=== PATIENT | male | born 1975 ===

== ENCOUNTER 2020-04-28 09:30 | Emergency (ER) | payer SELFPAY ==
[2020-04-28 09:38] VITALS: BP 116/70; PULSE 70; RESP 14; TEMP 36.8; O2SAT 100
--- NOTE | 2020-04-28 09:45 | ED.GENADULT ---
HPI - General Adult General Chief complaint: Skin/Abscess/Foreign Body Stated complaint: left leg infection Time Seen by Provider: 04/28/20 09:47 Source: patient and RN notes reviewed Mode of arrival: ambulatory Limitations: no limitations History of Present Illness HPI narrative: 44-year-old male presents with complaints of redness, warmth, tenderness, and swelling to left lateral lower leg for the past 3 days. Several days ago left lateral lower leg with nodule and then redness and warmth. Panfilo is unaware of any injuries to leg, may have scratched area. Alcohol and OTC cream applied without relief. Denies radiation of tenderness, redness, or swelling. No exacerbating factors per Panfilo. Denies calf pain. Denies open areas or drainage. Denies fever or chills. Last tetanus greater than 10 years ago, will update today. Remains active. The patient reports he have not been diagnosed with COVID-19. The patient reports he is not waiting for the results of a COVID-19 lab test. The patient reports he do not have fever, chills, weakness, or fatigue. The patient reports he do not have a new or worsening cough or shortness of breath. Denies chest pain. The patient reports he do not have any rhinorrhea, congestion, sore throat, nausea, vomiting, abdominal pain, and diarrhea. Tolerating po intake well. Denies recent traveling. Denies concerns for COVID-19 or exposures been home since [id number] order except for essential household needs, working, and return home. At this time, patient is not suspected of having COVID-19. Some parts of this dictation were generated by voice recognition software and may contain typographical and/or grammatical inaccuracies. Related Data Allergies Allergy/AdvReac Type Severity Reaction Status Date / Time No Known Allergies Allergy Verified 04/28/20 10:02 Review of Systems Review of Systems: Narrative: CONSTITUTIONAL: Denies fever, chills, sweats. EYES: Denies visual changes, redness, discharge. ENT: Denies rhinorrhea, congestion, sore throat, otalgia. CARDIOVASCULAR: Denies chest pain, palpitations, edema. RESPIRATORY: Denies dyspnea, wheezing, cough. GASTROINTESTINAL: Denies abdominal pain, nausea, vomiting, diarrhea. GENITOURINARY: Denies dysuria, hematuria, abnormal discharge. SKIN: Complains of redness, swelling, warmth, and tenderness to LT lower lateral leg with a scabbed center. MUSCULOSKELETAL: Denies acute back pain, joint pain, or myalgia. NEUROLOGIC: Denies numbness or focal weakness. PSYCHIATRIC: Denies anxiety or depression. All systems reviewed & are unremarkable except as noted in HPI and below. [facility] Past Medical History Medical History (Updated 04/28/20 @ 10:02 by MAISHA Handley) No significant past medical history Surgical History Surgical History (Updated 04/28/20 @ 10:00 by MAISHA Handley) No significant past surgical history Family History Family History (Updated 04/28/20 @ 10:01 by MAISHA Handley) Father Diabetes mellitus Mother Alive and well Social History Social History (Updated 04/28/20 @ 15:57 by MAISHA Handley) Smoking status: Never smoker Second hand tobacco smoke exposure: No Alcohol intake: current Substance use: never Living arrangements: with family Occupation/Education: occupation Gender identity (if verbalized by the patient): Male Comments At time of signature, agree with nurse past medical, surgical, social, and family history. There is no relevant family history pertinent to the presenting complaint. Exam Narrative: Exam Narrative: GENERAL: This is a well-nourished, well-developed patient, in no apparent distress. HEAD: normocephalic, atraumatic. EYES: PERRL. Sclera clear/white. Vision is grossly intact. CARDIOVASCULAR: Regular rate and rhythm without murmurs, gallops, or rubs. RESPIRATORY: Clear to auscultation. Breath sounds equal bilaterally. No wheezes, rales, or r
[2020-04-28] MEDS: TETANUS,DIPHTHERIA,AC PERTUSSIS ADULT (0.5 ML) BOOSTRIX IM (10:18)
[2020-04-28 10:45] VITALS: PULSE 82; RESP 18
== END 2020-04-28 10:45 | disposition home or self-care (01) ==
PROVIDERS: Emergency Provider Nurse Practitioner Family
DX: L03.116 Cellulitis of left lower limb (principal); Z23 Encounter for immunization
CPT/HCPCS: 90471; 90715; 99213; G0463